=== PATIENT | female | born 1980 | race Caucasian/White ===

== ENCOUNTER 2019-01-14 19:25 | Emergency (ER) | payer OTHER ==
[2019-01-14] MEDS ORDERED: Sodium Chloride 0.9% 2.5 ML Syringe FLUSH PRN (19:26)
[2019-01-14] MEDS ORDERED: Sodium Chloride 0.9% 10 ML Syringe FLUSH PRN (19:26)
--- NOTE | 2019-01-14 19:55 | EDM.PDOC ---
ED HPI GENERAL MEDICAL PROBLEM - General Chief Complaint: Chest Pain Stated Complaint: CHEST PAINS Time Seen by Provider: 01/14/19 19:28 Source of Information: Reports: Patient History Limitations: Reports: No Limitations - History of Present Illness INITIAL COMMENTS - FREE TEXT/NARRATIVE: HISTORY AND PHYSICAL: History of present illness: Patient is a 38-year-old female, approximately 13 weeks gestation, who presents to the ED today for concern of mid chest pain 4 days. Patient states she had noticed the chest pain 4 days ago when she noticed that the pain feels slightly worse if she takes a big breath and has a sensation of "heaviness". Patient states she follows along with Dr. Cueto at [facility]. She had states that she thought this was related and had called in and was told to come to the ED to be evaluated. Patient denies any complications of the thus far. Patient denies any vaginal bleeding or abdominal pain. Patient denies fever, chills, shortness of breath, or cough. Denies headache, neck stiff ness, change in vision, syncope, or near syncope. Denies nausea, vomiting, abdominal pain, diarrhea, constipation, or dysuria. Has not noted any blood in urine or stool. Patient has been eating and drinking appropriately. Review of systems: As per history of present illness and below otherwise all systems reviewed and negative. Past medical history: As per history of present illness and as reviewed below otherwise noncontributory. Surgical history: As per history of present illness and as reviewed below otherwise noncontributory. Social history: See social history for further information Family history: As per history of present illness and as reviewed below otherwise noncontributory. Physical exam: General: Patient is alert, oriented, and in no acute distress. Patient sitting comfortably on exam table. HEENT: Atraumatic, normocephalic, pupils equal and reactive bilaterally, negative for conjunctival pallor or scleral icterus, mucous membranes moist, TMs normal bilaterally, throat clear, neck supple, nontender, trachea midline. No drooling or trismus noted. No meningeal signs. No hot potato voice noted. Lungs: Clear to auscultation, breath sounds equal bilaterally, chest nontender. Heart: S1S2, regular rate and rhythm without overt murmur Abdomen: Soft, nondistended, nontender. Negative for masses or hepatosplenomegaly. Negative for costovertebral tenderness. Pelvis: Stable nontender. Genitourinary: Deferred. Rectal: Deferred. Skin: Intact, warm, dry. No lesions or rashes noted. Extremities: Atraumatic, negative for cords or calf pain. Neurovascular unremarkable. Neuro: Awake, alert, oriented. Cranial nerves II through XII unremarkable. Cerebellum unremarkable. Motor and sensory unremarkable throughout. Exam nonfocal. Notes: Dr. Quezada verbally involved in patient care. Dr. Cueto, OBGYN buttoner for GP, was consult on patient. Per her request, she does not see any need for a chest x-ray at this time. She did request that patient is to call the clinic in the morning for close follow-up with her outpatient. Discussed this with patient and she Voices understanding and is agreeable to plan of care. Denies any further questions or concerns at this time. Diagnostics: CBC, CMP, UA, EKG, troponin, urine hCG, first trimester limited ultrasound Patient was offered a chest x-ray was shielding the patient declines at this time Therapeutics: None Prescription: None Impression: Chest pain, unspecified Plan: 1. You can use Tylenol as directed for pain and discomfort. This is safe to use in . 2. Call [facility] in the morning to make an appointment. The number has been provided above for you. 3. Follow up with [facility] as discussed and follow-up with her primary care provider as discussed. Return to the ED as needed and as discussed. Definitive disposition and diagnosis as appropriate pending reevaluation and review of above. Mid-chest Pain Score (Numeric/FACES): 5 - Related Data Allergies Allergy/AdvReac Type Severity Reaction Status Date / Time No Known Allergies Allergy Verified 01/14/19 19:32 Home Meds: Home Meds Calcium Carbonate [Calcium] 1 tab PO DAILY 01/14/19 [History] Magnesium Oxide [Magnesium] 400 mg PO DAILY 01/14/19 [History] #103/Iron Fumarate/Fa [ ] 1 tab PO DAILY 01/14/19 [ History] Past Medical History - Past Health History Medical/Surgical History: Denies Medical/Surgical History HEENT History: Reports: None Cardiovascular History: Reports: None Respiratory History: Reports: None Gastrointestinal History: Reports: None Other Gastrointestinal History: Gall bladder issue when she was Genitourinary History: Reports: None 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: Musculoskeletal History: Reports: None Neurological History: Reports: None Psychiatric History: Reports: Anxiety, Depression Endocrine/Metabolic History: Reports: None Hematologic History: Reports: None Immunologic History: Reports: None Oncologic (Cancer) History: Reports: None Dermatologic History: Reports: None - Infectious Disease History Infectious Disease History: Reports: None - Past Surgical History Female Surgical History: Reports: Section Social & Family History - Tobacco Use Smoking Status *Q: Never Smoker - Recreational Drug Use Recreational Drug Use: No ED ROS GENERAL - Review of Systems Review Of Systems: ROS reveals no pertinent complaints other than HPI. ED EXAM, GENERAL - Physical Exam Exam: See Below (See dictation) Course - Vital Signs Last Recorded V/S: Last Vital Signs Temp 36.6 C 01/14/19 19:25 Pulse 99 01/14/19 19:25 Resp 18 01/14/19 19:25 BP 147/78 H 01/14/19 19:25 Pulse Ox 100 01/14/19 19:25 - Orders/Labs/Meds Orders: Active Orders 24 hr Category Date Time Status Cardiac Monitoring [RC] . DIRECTED Care 01/14/19 19:26 Active Sodium Chloride 0.9% [Saline Flush] Med 01/14/19 19:26 Active 10 ml FLUSH ASDIRECTED PRN Sodium Chloride 0.9% [Saline Flush] Med 01/14/19 19:26 Active 2.5 ml FLUSH ASDIRECTED PRN Saline Lock Insert [OM.PC] Stat Oth 01/14/19 19:26 Ordered Medication Orders Sodium Chloride (Saline Flush) 10 ml FLUSH ASDIRECTED PRN PRN Reason: Keep Vein Open Sodium Chloride (Saline Flush) 2.5 ml FLUSH ASDIRECTED PRN PRN Reason: Keep Vein Open Labs: Laboratory Tests 01/14/19 01/14/19 01/14/19 Range/Units 19:42 19:42 19:42 WBC 8.08 (4.0-11.0) K/uL RBC 4.33 (4.30-5.90) M/uL Hgb 13.2 (12.0-16.0) g/dL Hct 39.7 (36.0-46.0) % MCV 91.7 (80.0-98.0) fL MCH 30.5 (27.0-32.0) pg MCHC 33.2 (31.0-37.0) g/dL RDW Std Deviation 44.8 (28.0-62.0) fl RDW Coeff of Emily 14 (11.0-15.0) % Plt Count 201 (150-400) K/uL MPV 9.90 (7.40-12.00) fL Neut % (Auto) 67.8 (48.0-80.0) % Lymph % (Auto) 25.2 (16.0-40.0) % Dillingham % (Auto) 5.9 (0.0-15.0) % Eos % (Auto) 1.0 (0.0-7.0) % Baso % (Auto) 0.1 (0.0-1.5) % Neut # (Auto) 5.5 (1.4-5.7) K/uL Lymph # (Auto) 2.0 (0.6-2.4) K/uL Dillingham # (Auto) 0.5 (0.0-0.8) K/uL Eos # (Auto) 0.1 (0.0-0.7) K/uL Baso # (Auto) 0.0 (0.0-0.1) K/uL Nucleated RBC % 0.0 /100WBC Nucleated RBCs # 0 K/uL INR 0.91 Sodium 138 (136-145) mmol/L Potassium 4.1 (3.5-5.1) mmol/L Chloride 104 (98-107) mmol/L Carbon Dioxide 24.9 (21.0-32.0) mmol/L BUN 8 (7.0-18.0) mg/dL Creatinine 0.5 L (0.6-1.0) mg/dL Est Cr Clr Drug Dosing 144.21 mL/min Estimated GFR (MDRD) > 60.0 ml/min Glucose 99 (74-106) mg/dL Calcium 9.2 (8.5-10.1) mg/dL Total Bilirubin 0.3 (0.2-1.0) mg/dL AST 18 (15-37) IU/L ALT 21 (14-63) IU/L Alkaline Phosphatase 41 L (46-116) U/L Troponin I < 0.050 (0.000-0.056) ng/mL Total Protein 7.4 (6.4-8.2) g/dL Albumin 3.8 (3.4-5.0) g/dL Globulin 3.6 (2.6-4.0) g/dL Albumin/Globulin Ratio 1.1 (0.9-1.6) Urine HCG, Qual (NEGATIVE) 01/14/19 Range/Units 19:44 WBC (4.0-11.0) K/uL RBC (4.30-5.90) M/uL Hgb (12.0-16.0) g/dL Hct (36.0-46.0) % MCV (80.0-98.0) fL MCH (27.0-32.0) pg MCHC (31.0-37.0) g/dL RDW Std Deviation (28.0-62.0) fl RDW Coeff of Emily (11.0-15.0) % Plt Count (150-400) K/uL MPV (7.40-12.00) fL Neut % (Auto) (48.0-80.0) % Lymph % (Auto) (16.0-40.0) % Dillingham % (Auto) (0.0-15.0) % Eos % (Auto) (0.0-7.0) % Baso % (Auto) (0.0-1.5) % Neut # (Auto) (1.4-5.7) K/uL Lymph # (Auto) (0.6-2.4) K/uL Dillingham # (Auto) (0.0-0.8) K/uL Eos # (Auto) (0.0-0.7) K/uL Baso # (Auto) (0.0-0.1) K/uL Nucleated RBC % /100WBC Nucleated RBCs # K/uL INR Sodium (136-145) mmol/L Potassium (3.5-5.1) mmol/L Chloride (98-107) mmol/L Carbon Dioxide (21.0-32.0) mmol/L BUN (7.0-18.0) mg/dL Creatinine (0.6-1.0) mg/dL Est Cr Clr Drug Dosing mL/min Estimated GFR (MDRD) ml/min Glucose (74-106) mg/dL Calcium (8.5-10.1) mg/dL Total Bilirubin (0.2-1.0) mg/dL AST (15-37) IU/L ALT (14-63) IU/L Alkaline Phosphatase (46-116) U/L Troponin I (0.000-0.056) ng/mL Total Protein (6.4-8.2) g/dL Albumin (3.4-5.0) g/dL Globulin (2.6-4.0) g/dL Albumin/Globulin Ratio (0.9-1.6) Urine HCG, Qual POSITIVE (NEGATIVE) Meds: Medications Generic Name Dose Route Start Last Admin Trade Name Freq PRN Reason Stop Dose Admin Sodium Chloride 10 ml 01/14/19 19:26 Saline Flush FLUSH ASDIRECTED PRN Keep Vein Open Sodium Chloride 2.5 ml 01/14/19 19:26 Saline Flush FLUSH ASDIRECTED PRN Keep Vein Open Departure - Departure Time of Disposition: 21:04 Disposition: Home, Self-Care 01 Clinical Impression: Chest pain Qualifiers: Chest pain type: unspecified Qualified Code(s): R07.9 - Chest pain, unspecified Qualifiers: Weeks of gestation: 13 weeks Qualified Code(s): Z3A.13 - 13 weeks gestation of - Discharge Information Referrals: PCP,None [Primary Care Provider] - Forms: ED Department Discharge Additional Instructions: The following information is given to patients seen in the emergency department who are being discharged to home. This information is to outline your options for follow-up care. We provide all patients seen in our emergency department with a follow-up referral. The need for follow-up, as well as the timing and circumstances, are variable depending upon the specifics of your emergency department visit. If you don't have a primary care physician on staff, we will provide you with a referral. We always advise you to contact your personal physician following an emergency department visit to inform them of the circumstance of the visit and for follow-up with them and/or the need for any referrals to a consulting specialist. The emergency department will also refer you to a specialist when appropriate. This referral assures that you have the opportunity for follow-up care with a specialist. All of these measure are taken in an effort to provide you with optimal care, which includes your follow-up. Under all circumstances we always encourage you to contact your private physician who remains a resource for coordinating your care. When calling for follow-up care, please make the office aware that this follow-up is from your recent emergency room visit. If for any reason you are refused follow-up, please contact the [facility] Emergency Department at and asked to speak to the emergency department charge nurse. [facility] Primary Care [address] [place] [id number] [facility] [address] [place] [address] [id number] [facility] [address] [place] [address] 1. You can use Tylenol as directed for pain and discomfort. This is safe to use in . 2. Call [facility] in the morning to make an appointment. The number has been provided above for you. 3. Follow up with [facility] as discussed and follow-up with her primary care provider as discussed. Return to the ED as needed and as discussed.
[2019-01-14 20:08] LABS: CHLORIDE,CL 104 mmol/L (98-107); SODIUM,NA 138 mmol/L (136-145)
--- NOTE | 2019-01-14 20:54 | US ---
INDICATION: Chest pain. Check viability. TECHNIQUE: Limited transabdominal scanning was performed. COMPARISON: None. FINDINGS: There is a living IUP with gestational age of 13 weeks 1 day by LMP and 13 weeks 3 days by today`s crown-rump length. EDC based on LMP is 07/21/2019. The heart rate is measured at 161 beats per minute and the rhythm appears to be regular. The placenta is posterior, and the inferior end of the placenta may cover the internal os. No abruption is evident. The ovaries were not imaged. No free fluid is apparent. IMPRESSION: 1. Living fetus with gestational age of 13 weeks 1 day by LMP and 13 weeks 3 days by today`s crown-rump length. EDC based on LMP is 07/21/2019. 2. Posterior placenta. Previa cannot be excluded. Follow up recommended. Dictated by Moy Madrigal MD @ Jan 14 2019 8:45PM Signed by Dr. Moy Madrigal @ Jan 14 2019 8:53PM
[2019-01-14 21:16] VITALS: BP 108/62
== END 2019-01-14 21:15 | disposition home or self-care (01) ==
LOC: MW.ED 19:25
DX: O99.89 Other specified diseases and conditions complicating pregnancy, childbirth and the puerperium (principal); R07.9 Chest pain, unspecified; Z79.899 Other long term (current) drug therapy; Z3A.13 13 weeks gestation of pregnancy
CPT/HCPCS: 36415; 76801; 76801-26; 80053; 81025; 84484; 85025; 85610; 99285-25

== ENCOUNTER 2019-07-09 10:05 | Inpatient (IN) | payer OTHER ==
[2019-07-09] MEDS ORDERED: Sodium Chloride 0.9% 2.5 ML Syringe FLUSH PRN (10:30)
[2019-07-09] MEDS ORDERED: Ampicillin 2 GM in Sodium Chloride 0.9% 100 ML IV ONE (10:30)
[2019-07-09] MEDS ORDERED: Oxytocin/0.9 % Sodium Chloride 30 UNIT/500 ML BAG IV SCH (10:30)
[2019-07-09] MEDS ORDERED: Citric Acid/Sodium Citrate Solution 30 ML Cup PO ONE (10:30)
[2019-07-09] MEDS ORDERED: Sodium Chloride 0.9% 10 ML Syringe FLUSH PRN (10:30)
[2019-07-09] MEDS ORDERED: Sodium Chloride 0.9% 10 ML SDV IV PRN (10:30)
[2019-07-09] MEDS: Lactated Ringers 1,000 ML IV SCH ×2 (10:53→11:38)
--- NOTE | 2019-07-09 11:51 | PCM.PREANE ---
Preanesthetic Assessment - Procedure Proposed Procedure: - Anesthesia/Transfusion/Family Hx Anesthesia History: Prior Anesthesia Without Reaction Family History of Anesthesia Reaction: No Transfusion History: Unknown Intubation History: Unknown Additional History: Mouth smaller. Good ROM, - Review of Systems General: No Symptoms Pulmonary: No Symptoms Cardiovascular: No Symptoms Gastrointestinal: No Symptoms Neurological: No Symptoms Other: Reports: Diabetes (Blood suger 76. Takes insulin at night) - Physical Assessment NPO Status Date: 07/09/19 NPO Status Time: 08:00 (Only coffee this am) Height: 1.68 m Weight: 100.698 kg ASA Class: 2E Mental Status: Alert & Oriented x3 Airway Class: Mallampati = 2 Dentition: Reports: Normal Dentition Thyro-Mental Finger Breadths: 3 Mouth Opening Finger Breadths: 3 (Opens OK. Slightly small) ROM/Head Extension: Full Lungs: Clear to Auscultation Cardiovascular: Regular Rate - Lab Values: Laboratory Last Values WBC 8.61 K/uL (4.0-11.0) 07/09/19 10:51 RBC 4.39 M/uL (4.30-5.90) 07/09/19 10:51 Hgb 13.1 g/dL (12.0-16.0) 07/09/19 10:51 Hct 39.2 % (36.0-46.0) 07/09/19 10:51 MCV 89.3 fL (80.0-98.0) 07/09/19 10:51 MCH 29.8 pg (27.0-32.0) 07/09/19 10:51 MCHC 33.4 g/dL (31.0-37.0) 07/09/19 10:51 RDW Std Deviation 47.7 fl (28.0-62.0) 07/09/19 10:51 RDW Coeff of Emily 15 % (11.0-15.0) 07/09/19 10:51 Plt Count 195 K/uL (150-400) 07/09/19 10:51 MPV 10.00 fL (7.40-12.00) 07/09/19 10:51 Nucleated RBC % 0.0 /100WBC 07/09/19 10:51 Nucleated RBCs # 0 K/uL 07/09/19 10:51 - Allergies Allergies/Adverse Reactions: Allergies Allergy/AdvReac Type Severity Reaction Status Date / Time No Known Allergies Allergy Verified 01/14/19 19:32 - Blood Blood Available: No - Acknowledgements Anesthesia Type Planned: Spinal Pt an Appropriate Candidate for the Planned Anesthesia: Yes Alternatives and Risks of Anesthesia Discussed w Pt/Guardian: Yes Pt/Guardian Understands and Agrees with Anesthesia Plan: Yes Additional Comments: Pt. very anxious. Discussed. Wishes to proceed. ? answered. 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 History: Reports: None Neurological History: Reports: None Psychiatric History: Reports: Anxiety, Depression Endocrine/Metabolic History: Reports: Diabetes, Gestational Hematologic History: Reports: None Immunologic History: Reports: None Oncologic (Cancer) History: Reports: None Dermatologic History: Reports: None - Infectious Disease History Infectious Disease History: Reports: None - Past Surgical History Female Surgical History: Reports: Section - SUBSTANCE USE Smoking Status *Q: Former Smoker Recreational Drug Use History: No - HOME MEDS Home Medications: Home Meds Calcium Carbonate [Calcium] 1 tab PO DAILY 01/14/19 [History] Magnesium Oxide [Magnesium] 400 mg PO DAILY 01/14/19 [History] #103/Iron Fumarate/Fa [ ] 1 tab PO DAILY 01/14/19 [ History] - CURRENT (IN HOUSE) MEDS Current Meds: Current Medications Lactated Ringer's (Ringers, Lactated) 1,000 mls @ 500 mls/hr IV BOLUS MAXIMUS Last Admin: 07/09/19 11:38 Dose: 500 mls/hr Oxytocin/Sodium Chloride (Oxytocin 30 Unit/500 Ml-Ns) 30 unit in 500 mls @ 250 mls/hr IV TITRATE MAXIMUS Sodium Chloride (Saline Flush) 10 ml FLUSH ASDIRECTED PRN PRN Reason: Keep Vein Open Sodium Chloride (Saline Flush) 2.5 ml FLUSH ASDIRECTED PRN PRN Reason: Keep Vein Open Sodium Chloride (Normal Saline) 10 ml IV ASDIRECTED PRN PRN Reason: IV Use Discontinued Medications Citric Acid/Sodium Citrate (Bicitra Solution) 30 ml PO ONETIME ONE Stop: 07/09/19 10:31 Ampicillin Sodium 2 gm/ Sodium (Chloride) 100 mls @ 200 mls/hr IV ONETIME ONE Stop: 07/09/19 10:59 Last Admin: 07/09/19 11:07 Dose: 200 mls/hr
[2019-07-09] MEDS ORDERED: ceFAZolin 2 GM in Premix Bag 1 BAG IV ONE (11:52)
[2019-07-09] MEDS ORDERED: Octyl 2-Cyanoacrylate 1 Tube ONE (12:00)
[2019-07-09] MEDS ORDERED: Sodium Chloride 0.9% 40 ML ONE (12:05)
[2019-07-09] MEDS ORDERED: ceFAZolin 1 GM Vial ONE (12:05)
[2019-07-09] MEDS ORDERED: Oxytocin 10 Units/1 ML SDV ONE (12:05)
[2019-07-09] MEDS ORDERED: Ondansetron 4 MG/2 ML SDV ONE (12:05)
[2019-07-09] MEDS ORDERED: ePHEDrine 50 MG/ML SDV ONE (12:05)
[2019-07-09] MEDS ORDERED: Propofol 200 MG/20 ML SDV ONE (12:05)
[2019-07-09] MEDS ORDERED: Morphine PF 10 MG/10 ML SDV ONE (12:07)
[2019-07-09] MEDS ORDERED: Oxytocin 10 Units/1 ML SDV IM PRN (13:22)
[2019-07-09] MEDS ORDERED: Ondansetron 4 MG/2 ML SDV IVPUSH PRN ×2 (13:22→14:00)
[2019-07-09] MEDS ORDERED: diphenhydrAMINE 50 MG/ML SDV IVPUSH PRN ×2 (13:22→14:00)
[2019-07-09] MEDS ORDERED: Lanolin 100% Cream 7 GM Tube TOP PRN (13:22)
[2019-07-09] MEDS ORDERED: Tranexamic Acid 1,000 MG in Sodium Chloride 0.9% 100 ML IV PRN (13:22)
[2019-07-09] MEDS ORDERED: Misoprostol 200 MCG Tab RECTAL PRN (13:22)
[2019-07-09] MEDS ORDERED: Bisacodyl 10 MG Supp RECTAL PRN (13:22)
[2019-07-09] MEDS ORDERED: Measles, Mumps & Rubella Vaccine 0.5 ML SDV SUBCUT ONE (13:22)
[2019-07-09] MEDS ORDERED: Methylergonovine 0.2 MG/1 ML Amp IM PRN (13:22)
[2019-07-09] MEDS ORDERED: Acetaminophen/oxyCODONE 325-5 MG Tab PO PRN ×2 (13:22→14:00)
[2019-07-09] MEDS ORDERED: Lactated Ringers 1,000 ML IV SCH (13:30)
--- NOTE | 2019-07-09 13:33 | PCM.OPNOTE ---
- General Post-Op/Procedure Note Date of Surgery/Procedure: 07/09/19 Operative Procedure(s): Repeat LTCS Findings: Viable male APGARs 8, 9 weight pending. Intact placenta with 3 V cord Pre Op Diagnosis: 38 week IUP. SROM. previous c section x 3, desires repeat Post-Op Diagnosis: Same Anesthesia Technique: Spinal Primary Surgeon: Danyelle Melton Cloud Solutions Architect: Sandra Malik Fluid Replacement, Intraop: 2,600 EBL in mLs: 700 Complications: none known Condition: Stable Free Text/Narrative:: Dictation [id number]
[2019-07-09] MEDS ORDERED: fentaNYL 100 MCG/2 ML SDV IVPUSH PRN (14:00)
[2019-07-09] MEDS ORDERED: Naloxone 0.4 MG/ML Syringe IVPUSH PRN (14:00)
[2019-07-09] MEDS ORDERED: Nalbuphine 10 MG/1 ML Vial IVPUSH PRN (14:00)
[2019-07-09] MEDS: Ketorolac 30 MG/ML SDV IVPUSH SCH ×2 (14:12→20:12)
--- NOTE | 2019-07-09 14:27 | PCM.POSTAN ---
POST ANESTHESIA ASSESSMENT - MENTAL STATUS Mental Status: Alert - RESPIRATORY Respiratory Status: Respiratory Rate WNL - CARDIOVASCULAR CV Status: Pulse Rate WNL - GASTROINTESTINAL GI Status: No Symptoms - PAIN Pain Score: 0 (SAB regressing well) - POST OP HYDRATION Hydration Status: Adequate & Stable (No problems noted. Adequate for discharge. )
--- NOTE | 2019-07-09 16:21 | OR ---
SURGEON: Danyelle Melton M.D. DATE OF PROCEDURE: 07/09/2019 PREOPERATIVE DIAGNOSES: 1. A 38-week intrauterine . 2. Spontaneous rupture of membranes. 3. Previous section x3, desires repeat. POSTOPERATIVE DIAGNOSES: 1. A 38-week intrauterine . 2. Spontaneous rupture of membranes. 3. Previous section x3, desires repeat. PROCEDURE: Repeat low-transverse section. PRIMARY SURGEON: Danyelle Melton MD. UI LEAD DEVELOPER: Karyn Malik. ANESTHESIA: Spinal. ESTIMATED BLOOD LOSS: 700 mL. FLUIDS: 2600 mL of crystalloid. COMPLICATIONS: None known. FINDINGS: Viable male. scores 8 at one minute and 9 at five minutes. Weight is pending. Delivery, intact placenta, 3-vessel cord. DISPOSITION: Infant to nursery, mom in PACU, stable. 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 On initial examination, she was found to be grossly ruptured. heart tones category 1. She is group B beta strep positive. Therefore, while being admitted, she was infused with 2 g of IV ampicillin. At this time, the patient has elected to proceed with repeat delivery. Risks of procedure have been discussed with proper consent obtained. The patient was taken to the operating room where she underwent spinal anesthetic, was then placed in dorsal supine position with leftward tilt. SCDs to lower extremities. Wagner to gravity. Was prepped and draped in the usual sterile fashion. A time-out was performed. Ancef delivered prophylactically. Anesthesia was tested, found to be adequate. Previous Pfannenstiel scar was now excised. Subcutaneous tissue was incised down to the level of the midline. Fascia was incised in the midline and lateralized on either side sharply and bluntly. The superior aspect of fascia was tented upward, dissected sharply and bluntly away from underlying muscle. In a similar fashion, this was performed at the inferior aspect of the fascia. Rectus muscle was in the midline. Peritoneum was tented upward and attempted to be entered. It was not entered easily. It was noted at this juncture that there was actually quite a lot of uterovesical peritoneal adhesions to the uterus itself to the level of the fundus. I was able to mobilize the bladder away from the lower uterine segment, enabled a clear portion of the lower uterine segment in order to allow low-transverse hysterotomy. At this point, there was not enough mobilization of the peritoneum and the adhesions to allow placement of an Michael retractor. Therefore, visualization was performed with bladder blade and Rich retractor. A low transverse hysterotomy was then able to be performed. Uterine cavity was entered with blunt-ended scalpel. Hysterotomy was lateralized bluntly. Fetus head was delivered from the pelvis, flexed, and fundal pressure was applied. Infant's head was delivered followed by anterior shoulder, posterior shoulder, and the remainder of the body without difficulty. The infant's oropharynx and nares were bulb suctioned. Cord was clamped x2 and cut. Infant was handed off to attending nursery staff and children's minister. Cord arterial, cord venous, cord blood sampling was obtained. The placenta was now delivered. Uterine cavity was cleared of all clot and debris. Care was taken to delineate the lower edge of the hysterotomy, lower uterine segment. The hysterotomy repaired using 0 Vicryl in continuous running locked fashion followed by a re-imbricating layer. Area of bleeding in the midline was replicated with [id number] suture. Given the amount of adhesions, the bladder was backfilled with approximately 60 mL of sterile milk and no regions of perforation were noted. The bladder appears to be intact. Therefore, the bladder was once again drained. Area of serosal oozing was able to be cauterized. Region of more dense omental peritoneal adhesions was able to be isolated, secured with Raul clamp, transected with Bovie cautery and ligated with a tie on a pass. A layer of Surgicel was now gently placed along the anterior uterine serosal layer and along the hysterotomy repair. Hemostasis appeared evident. The pelvis had been copiously irrigated and suction dried. The peritoneum and rectus muscles were now reapproximated using 0 Vicryl in inverted mattress suture technique. Anterior aspect of the muscle, posterior aspect were closely inspected. Any areas of oozing were cauterized. The rectus fascia was reapproximated using 0 Vicryl in continuous running fashion, beginning laterally on each side and meeting in the midline. Subcutaneous tissue was well irrigated, suction dried. Any areas of oozing were cauterized. Deep subcutaneous tissue was reapproximated with 3-0 plain in continuous running fashion. Skin edges were reapproximated with 4-0 Vicryl on a Shashank needle in subcuticular fashion followed by Dermabond and LILI dressing. Sponge, instrument, and needle count was correct x2. The patient has tolerated the procedure well overall. She will go to PACU in stable condition, to nursery. ONIEL / ANIVAL /[id number]
[2019-07-09] MEDS: Simethicone 80 MG Tab.Chew PO SCH (19:13)
[2019-07-09] MEDS: Docusate Sodium 100 MG Cap PO SCH (21:22)
[2019-07-10] MEDS: Ketorolac 30 MG/ML SDV IVPUSH SCH ×3 (02:06→13:32)
[2019-07-10] MEDS: Simethicone 80 MG Tab.Chew PO SCH ×3 (06:07→20:13)
--- NOTE | 2019-07-10 07:42 | PCM48HPAN ---
Post Anesthesia Note - EVALUATION WITHIN 48HRS OF ANESTHETIC Vital Signs in Normal Range: Yes Patient Participated in Evaluation: Yes Respiratory Function Stable: Yes Airway Patent: Yes Cardiovascular Function Stable: Yes Hydration Status Stable: Yes Pain Control Satisfactory: Yes Nausea and Vomiting Control Satisfactory: Yes Mental Status Recovered: Yes Vital Signs: Last Vital Signs Temp 35.9 C 07/10/19 04:54 Pulse 79 07/10/19 06:00 Resp 15 07/10/19 06:00 BP 108/57 L 07/10/19 04:54 Pulse Ox 97 07/10/19 06:00
[2019-07-10] MEDS: Docusate Sodium 100 MG Cap PO SCH ×2 (09:17→20:18)
--- NOTE | 2019-07-10 17:22 | PCM.PNPP ---
- General Info Date of Service: 07/10/19 Subjective Update: 38yo P4 s/p tertiary POD 1 Good pain control Catheter out , yet to void Functional Status: Reports: Pain Controlled, Tolerating Diet, Ambulating - Review of Systems General: Reports: No Symptoms HEENT: Reports: No Symptoms Pulmonary: Reports: No Symptoms Cardiovascular: Reports: No Symptoms Gastrointestinal: Reports: No Symptoms Genitourinary: Reports: No Symptoms Musculoskeletal: Reports: No Symptoms Skin: Reports: No Symptoms Neurological: Reports: No Symptoms Psychiatric: Reports: No Symptoms - General Info Date of Service: 07/10/19 - Patient Data Vital Signs - Most Recent: Last Vital Signs Temp 36.4 C 07/10/19 08:15 Pulse 94 07/10/19 12:00 Resp 16 07/10/19 12:00 BP 114/61 07/10/19 08:15 Pulse Ox 100 07/10/19 12:00 Weight - Most Recent: 100.698 kg I&O - Last 24 Hours: Intake & Output 07/10/19 07/10/19 07/10/19 06:59 14:59 22:59 Output Total 1100 Balance -1100 Lab Results - Last 24 Hours: Laboratory Results - last 24 hr 07/09/19 07/09/19 07/09/19 Range/Units 10:51 12:33 12:33 Hgb (12.0-16.0) g/dL Hct (36.0-46.0) % Cord ABG pH 7.279 (7.18-7.38) Cord ABG Base Excess -2 (-10--2) Cord VBG pH 7.315 (7.25-7.45) Cord VBG Base Excess -2 (-10--2) Fasting Glucose (74-106) mg/dL RPR Non-Reac (Non-Reac) 07/10/19 07/10/19 Range/Units 05:35 05:35 Hgb 11.3 L (12.0-16.0) g/dL Hct 34.3 L (36.0-46.0) % Cord ABG pH (7.18-7.38) Cord ABG Base Excess (-10--2) Cord VBG pH (7.25-7.45) Cord VBG Base Excess (-10--2) Fasting Glucose 86 (74-106) mg/dL RPR (Non-Reac) Med Orders - Current: Current Medications Bisacodyl (Dulcolax) 10 mg RECTAL ONETIME PRN PRN Reason: Constipation Diphenhydramine HCl (Benadryl) 25 mg IVPUSH Q6H PRN PRN Reason: Itching or Nausea Docusate Sodium (Colace) 100 mg PO BID [facility] Last Admin: 07/10/19 09:17 Dose: 100 mg Emollient Ointment (Lansinoh Hpa) 0 gm TOP ASDIRECTED PRN PRN Reason: Sore Nipples Fentanyl (Sublimaze) 50 mcg IVPUSH Q1H PRN PRN Reason: Pain (severe 7-10) Lactated Ringer's (Ringers, Lactated) 1,000 mls @ 500 mls/hr IV BOLUS [facility] Last Admin: 07/09/19 11:38 Dose: 500 mls/hr Oxytocin/Sodium Chloride (Oxytocin 30 Unit/500 Ml-Ns) 30 unit in 500 mls @ 250 mls/hr IV TITRATE [facility] Tranexamic Acid 1,000 mg/ (Sodium Chloride) 110 mls @ 660 mls/hr IV ONETIME PRN PRN Reason: Bleeding Lactated Ringer's (Ringers, Lactated) 1,000 mls @ 125 mls/hr IV ASDIRECTED [facility] Last Admin: 07/09/19 17:51 Dose: 125 mls/hr Ibuprofen (Motrin) 800 mg PO Q8H PRN PRN Reason: mild pain or fever Methylergonovine Maleate (Methergine) 0.2 mg IM ONETIME PRN PRN Reason: Excessive Vaginal Bleeding Misoprostol (Cytotec) 1,000 mcg RECTAL ONETIME PRN PRN Reason: excessive bleeding Nalbuphine HCl (Nubain) 5 mg IVPUSH ASDIRECTED PRN PRN Reason: Itching Ondansetron HCl (Zofran) 4 mg IVPUSH Q4H PRN PRN Reason: Nausea/Vomiting Last Admin: 07/09/19 19:13 Dose: 4 mg Ondansetron HCl (Zofran) 4 mg IVPUSH Q6H PRN PRN Reason: Nausea Oxycodone/Acetaminophen (Percocet 325-5 Mg) 1 tab PO Q4H PRN PRN Reason: Pain (moderate 4-6) Oxycodone/Acetaminophen (Percocet 325-5 Mg) 2 tab PO Q4H PRN PRN Reason: Pain (moderate 4-6) Oxycodone/Acetaminophen (Percocet 325-5 Mg) 2 tab PO Q6H PRN PRN Reason: Pain (moderate 4-6) Oxytocin (Pitocin) 10 unit IM ASDIRECTED PRN PRN Reason: Excessive Vaginal Bleeding Simethicone (Simethicone) 160 mg PO QID [facility] Last Admin: 07/10/19 13:32 Dose: 160 mg Sodium Chloride (Saline Flush) 10 ml FLUSH ASDIRECTED PRN PRN Reason: Keep Vein Open Sodium Chloride (Saline Flush) 2.5 ml FLUSH ASDIRECTED PRN PRN Reason: Keep Vein Open Sodium Chloride (Normal Saline) 10 ml IV ASDIRECTED PRN PRN Reason: IV Use Discontinued Medications Cefazolin Sodium (Ancef) Confirm Administered Dose 2 gm .ROUTE .STK-MED ONE Stop: 07/09/19 12:06 Citric Acid/Sodium Citrate (Bicitra Solution) 30 ml PO ONETIME ONE Stop: 07/09/19 10:31 Diphenhydramine HCl (Benadryl) 25 mg IVPUSH Q4H PRN PRN Reason: Itching Stop: 07/10/19 14:00 Ephedrine Sulfate (Ephedrine Sulfate) Confirm Administered Dose 100 mg .ROUTE .STK-MED ONE Stop: 07/09/19 12:06 Ampicillin Sodium 2 gm/ Sodium (Chloride) 100 mls @ 200 mls/hr IV ONETIME ONE Stop: 07/09/19 10:59 Last Admin: 07/09/19 11:07 Dose: 200 mls/hr Cefazolin Sodium/Dextrose 2 gm (/ Premix) 50 mls @ 100 mls/hr IV ONETIME ONE Stop: 07/09/19 12:21 Acetaminophen (Ofirmev) Confirm Administered Dose 100 mls @ as directed .ROUTE .STK-MED ONE Stop: 07/09/19 12:00 Sodium Chloride (Normal Saline) Confirm Administered Dose 40 mls @ as directed .ROUTE .STK-MED ONE Stop: 07/09/19 12:06 Ketorolac Tromethamine (Toradol) 30 mg IVPUSH Q6H [facility] Stop: 07/10/19 13:31 Last Admin: 07/10/19 13:32 Dose: 30 mg Measles/Mumps/Rubella Vaccine Live (M-M-R Ii Vaccine) 0.5 ml SUBCUT .ONCE ONE Stop: 07/09/19 13:23 Morphine Sulfate (Duramorph Pf) Confirm Administered Dose 10 mg .ROUTE .STK-MED ONE Stop: 07/09/19 12:08 Naloxone HCl (Narcan) 0.1 mg IVPUSH ONETIME PRN PRN Reason: Respiratory Depression Stop: 07/10/19 14:00 Octyl Cyanoacrylate (Dermabond Advance) Confirm Administered Dose 1 applic .ROUTE .STK-MED ONE Stop: 07/09/19 12:01 Ondansetron HCl (Zofran) Confirm Administered Dose 4 mg .ROUTE .STK-MED ONE Stop: 07/09/19 12:06 Oxytocin (Pitocin) Confirm Administered Dose 30 unit .ROUTE .STK-MED ONE Stop: 07/09/19 12:06 Propofol (Diprivan 20 Ml) Confirm Administered Dose 200 mg .ROUTE .STK-MED ONE Stop: 07/09/19 12:06 - Infant Interaction Support Person: - Recovery Exam Fundal Tone: Firm Fundal Level: 1 Fingerbreadths Below Umbilicus Fundal Placement: Midline Lochia Amount: Scant Lochia Color: Rubra/Red Perineum Description: Intact, Minimal Bruising/Swelling Episiotomy/Laceration: None Urinary Elimination: Indwelling Catheter - Exam General: Alert HEENT: Pupils Equal Neck: Supple Lungs: Clear to Auscultation Cardiovascular: Regular Rate, Regular Rhythm GI/Abdominal Exam: Normal Bowel Sounds Extremities: Normal Inspection Skin: Warm Wound/Incisions: Dressing Dry and Intact Neurological: No New Focal Deficit Psy/Mental Status: Alert - Problem List & Annotations (1) delivery delivered SNOMED Code(s): 718424035 Code(s): O82 - ENCOUNTER FOR DELIVERY WITHOUT INDICATION Status: Acute Current Visit: Yes - Problem List Review Problem List Initiated/Reviewed/Updated: Yes - Assessment Assessment:: 38yo P4 s/p POD 1 Ambulating , rodriguez out yet to void Normal lochia - Plan Plan:: Routine Follow void Pain control as needed Encourage ambulation Possible discharge tomorrow
[2019-07-10] MEDS ORDERED: Acetaminophen 500 MG Tab PO PRN (19:55)
[2019-07-10] MEDS: Ibuprofen 800 MG Tab PO PRN (22:13)
[2019-07-11] MEDS: Simethicone 80 MG Tab.Chew PO SCH ×2 (01:34→11:57)
[2019-07-11] MEDS: Acetaminophen/oxyCODONE 325-5 MG Tab PO PRN ×2 (01:52→08:56)
--- NOTE | 2019-07-11 08:12 | PCM.PNPP ---
- General Info Date of Service: 07/11/19 Subjective Update: 38yo P4 s/p tertiary POD 2 Good pain control voiding Functional Status: Reports: Pain Controlled, Tolerating Diet, Ambulating, Urinating - Review of Systems General: Reports: No Symptoms HEENT: Reports: No Symptoms Pulmonary: Reports: No Symptoms Cardiovascular: Reports: No Symptoms Gastrointestinal: Reports: No Symptoms Genitourinary: Reports: No Symptoms Musculoskeletal: Reports: No Symptoms Skin: Reports: No Symptoms Neurological: Reports: No Symptoms Psychiatric: Reports: No Symptoms - General Info Date of Service: 07/11/19 - Patient Data Vital Signs - Most Recent: Last Vital Signs Temp 36.4 C 07/11/19 04:45 Pulse 82 07/11/19 04:45 Resp 16 07/11/19 04:45 BP 119/66 07/11/19 04:45 Pulse Ox 96 07/11/19 04:45 Weight - Most Recent: 100.698 kg Lab Results - Last 24 Hours: Laboratory Results - last 24 hr 07/09/19 07/09/19 07/09/19 Range/Units 10:51 12:33 12:33 Cord ABG pH 7.279 (7.18-7.38) Cord ABG Base Excess -2 (-10--2) Cord VBG pH 7.315 (7.25-7.45) Cord VBG Base Excess -2 (-10--2) RPR Non-Reac (Non-Reac) Med Orders - Current: Current Medications Acetaminophen (Tylenol Extra Strength) 500 - 1,000 mg PO Q8H PRN PRN Reason: Pain Last Admin: 07/10/19 20:13 Dose: 1,000 mg Bisacodyl (Dulcolax) 10 mg RECTAL ONETIME PRN PRN Reason: Constipation Diphenhydramine HCl (Benadryl) 25 mg IVPUSH Q6H PRN PRN Reason: Itching or Nausea Docusate Sodium (Colace) 100 mg PO BID [facility] Last Admin: 07/10/19 20:18 Dose: 100 mg Emollient Ointment (Lansinoh Hpa) 0 gm TOP ASDIRECTED PRN PRN Reason: Sore Nipples Fentanyl (Sublimaze) 50 mcg IVPUSH Q1H PRN PRN Reason: Pain (severe 7-10) Lactated Ringer's (Ringers, Lactated) 1,000 mls @ 500 mls/hr IV [facility] Last Admin: 07/09/19 11:38 Dose: 500 mls/hr Oxytocin/Sodium Chloride (Oxytocin 30 Unit/500 Ml-Ns) 30 unit in 500 mls @ 250 mls/hr IV TITRATE [facility] Tranexamic Acid 1,000 mg/ (Sodium Chloride) 110 mls @ 660 mls/hr IV ONETIME PRN PRN Reason: Bleeding Lactated Ringer's (Ringers, Lactated) 1,000 mls @ 125 mls/hr IV ASDIRECTED [facility] Last Admin: 07/09/19 17:51 Dose: 125 mls/hr Ibuprofen (Motrin) 800 mg PO Q8H PRN PRN Reason: mild pain or fever Last Admin: 07/10/19 22:13 Dose: 800 mg Methylergonovine Maleate (Methergine) 0.2 mg IM ONETIME PRN PRN Reason: Excessive Vaginal Bleeding Misoprostol (Cytotec) 1,000 mcg RECTAL ONETIME PRN PRN Reason: excessive bleeding Nalbuphine HCl (Nubain) 5 mg IVPUSH ASDIRECTED PRN PRN Reason: Itching Ondansetron HCl (Zofran) 4 mg IVPUSH Q4H PRN PRN Reason: Nausea/Vomiting Last Admin: 07/09/19 19:13 Dose: 4 mg Ondansetron HCl (Zofran) 4 mg IVPUSH Q6H PRN PRN Reason: Nausea Oxycodone/Acetaminophen (Percocet 325-5 Mg) 1 tab PO Q4H PRN PRN Reason: Pain (moderate 4-6) Last Admin: 07/11/19 01:52 Dose: 1 tab Oxycodone/Acetaminophen (Percocet 325-5 Mg) 2 tab PO Q4H PRN PRN Reason: Pain (moderate 4-6) Oxycodone/Acetaminophen (Percocet 325-5 Mg) 2 tab PO Q6H PRN PRN Reason: Pain (moderate 4-6) Oxytocin (Pitocin) 10 unit IM ASDIRECTED PRN PRN Reason: Excessive Vaginal Bleeding Simethicone (Simethicone) 160 mg PO QID [facility] Last Admin: 07/11/19 01:34 Dose: 160 mg Sodium Chloride (Saline Flush) 10 ml FLUSH ASDIRECTED PRN PRN Reason: Keep Vein Open Sodium Chloride (Saline Flush) 2.5 ml FLUSH ASDIRECTED PRN PRN Reason: Keep Vein Open Sodium Chloride (Normal Saline) 10 ml IV ASDIRECTED PRN PRN Reason: IV Use Discontinued Medications Cefazolin Sodium (Ancef) Confirm Administered Dose 2 gm .ROUTE .STK-MED ONE Stop: 07/09/19 12:06 Citric Acid/Sodium Citrate (Bicitra Solution) 30 ml PO ONETIME ONE Stop: 07/09/19 10:31 Diphenhydramine HCl (Benadryl) 25 mg IVPUSH Q4H PRN PRN Reason: Itching Stop: 07/10/19 14:00 Ephedrine Sulfate (Ephedrine Sulfate) Confirm Administered Dose 100 mg .ROUTE .STK-MED ONE Stop: 07/09/19 12:06 Ampicillin Sodium 2 gm/ Sodium (Chloride) 100 mls @ 200 mls/hr IV ONETIME ONE Stop: 07/09/19 10:59 Last Admin: 07/09/19 11:07 Dose: 200 mls/hr Cefazolin Sodium/Dextrose 2 gm (/ Premix) 50 mls @ 100 mls/hr IV ONETIME ONE Stop: 07/09/19 12:21 Acetaminophen (Ofirmev) Confirm Administered Dose 100 mls @ as directed .ROUTE .STK-MED ONE Stop: 07/09/19 12:00 Sodium Chloride (Normal Saline) Confirm Administered Dose 40 mls @ as directed .ROUTE .STK-MED ONE Stop: 07/09/19 12:06 Ketorolac Tromethamine (Toradol) 30 mg IVPUSH Q6H [facility] Stop: 07/10/19 13:31 Last Admin: 07/10/19 13:32 Dose: 30 mg Measles/Mumps/Rubella Vaccine Live (M-M-R Ii Vaccine) 0.5 ml SUBCUT .ONCE ONE Stop: 07/09/19 13:23 Morphine Sulfate (Duramorph Pf) Confirm Administered Dose 10 mg .ROUTE .STK-MED ONE Stop: 07/09/19 12:08 Naloxone HCl (Narcan) 0.1 mg IVPUSH ONETIME PRN PRN Reason: Respiratory Depression Stop: 07/10/19 14:00 Octyl Cyanoacrylate (Dermabond Advance) Confirm Administered Dose 1 applic .ROUTE .STK-MED ONE Stop: 07/09/19 12:01 Ondansetron HCl (Zofran) Confirm Administered Dose 4 mg .ROUTE .STK-MED ONE Stop: 07/09/19 12:06 Oxytocin (Pitocin) Confirm Administered Dose 30 unit .ROUTE .STK-MED ONE Stop: 07/09/19 12:06 Propofol (Diprivan 20 Ml) Confirm Administered Dose 200 mg .ROUTE .STK-MED ONE Stop: 07/09/19 12:06 - Interaction Support Person: - Recovery Exam Fundal Tone: Firm Fundal Level: 1 Fingerbreadths Below Umbilicus Fundal Placement: Midline Lochia Amount: Scant Lochia Color: Rubra/Red Perineum Description: Intact, Minimal Bruising/Swelling Episiotomy/Laceration: None Bladder Status: Voiding Urinary Elimination: Indwelling Catheter - Exam General: Alert HEENT: Pupils Equal Neck: Supple Lungs: Clear to Auscultation, Normal Respiratory Effort Cardiovascular: Regular Rate, Regular Rhythm GI/Abdominal Exam: Normal Bowel Sounds Extremities: Normal Inspection Wound/Incisions: Dressing Dry and Intact Neurological: No New Focal Deficit - Problem List & Annotations (1) delivery delivered SNOMED Code(s): 927406222 Code(s): O82 - ENCOUNTER FOR DELIVERY WITHOUT INDICATION Status: Acute Current Visit: Yes - Problem List Review Problem List Initiated/Reviewed/Updated: Yes - Assessment Assessment:: 38yo P4 s/p POD 2 Ambulating , voiding Normal lochia - Plan Plan:: Routine Discharge home Remove carolynn dressing in one week
[2019-07-11] MEDS: Ibuprofen 800 MG Tab PO PRN (08:55)
[2019-07-11] MEDS: Docusate Sodium 100 MG Cap PO SCH (08:55)
[2019-07-11 11:48] VITALS: BP 120/83; PULSE 99
== END 2019-07-11 14:43 | disposition home or self-care (01) | DRG 788 ==
LOC: MW.OB 10:05 → UNDOADMOB 10:05 → OBSVTOIN 10:31 → INTOOBSV 10:31 → MW.OB 10:31
PROVIDERS: ADMIT Obstetrics & Gynecology; ATTEND Obstetrics & Gynecology
PROC: 10D00Z1 Extraction of Products of Conception, Low, Open Approach (ICD-10-PCS; principal; 2019-07-09)
DX: O34.211 Maternal care for low transverse scar from previous cesarean delivery (principal); Z37.0 Single live birth; Z3A.38 38 weeks gestation of pregnancy
CPT/HCPCS: 01961; 36415; 59025; 82803; 82947; 82962; 85014; 85018; 85027; 86592; 86850; 86900; 86901; A9270-GY; J0131; J0290; J0690; J1885; J2270; J2405; J2590; J2704; J7050; J7120